=== PATIENT | male | born 1965 | race Caucasian/White ===

== ENCOUNTER 2021-09-25 09:49 | Emergency (ER) | payer BC ==
[~2021-09-25] VITALS: Ht 162.6 cm; Wt 74.8 kg
[~2021-09-25 09:49] MED LIST: ASPIRIN EC325 M1 PO; B-COMPLEX-VITA1 EACH; NIACIN 500 MG500 M1; NOHOMEMEDICATIONS
[2021-09-25 10:53] LABS: ABSOLUTE BASOPHILS 0.1 thou/uL (0.0-0.2); ABSOLUTE EOSINOPHILS 0.1 thou/uL (0.0-0.7); ABSOLUTE LYMPHOCYTES 2.1 thou/uL (0.8-5.3); ABSOLUTE MONOCYTES 0.7 thou/uL (0.0-1.2); ABSOLUTE NEUTROPHILS 5.4 thou/uL (1.6-8.1); BASOPHILS 0.7 %; EOSINOPHILS 1.5 %; HEMATOCRIT 47.7 % (42.0-52.0); LYMPHOCYTES 24.6 %; MCH 29.7 pg (26.0-34.0); MCHC 33.6 g/dL (28.0-37.0); MCV 88.3 fL (80.0-100.0); MONOCYTES 8.8 %; MPV 7.2 fl. (7.2-11.1); NUCLEATED RBCS 0 /100WBC; PLATELET COUNT* 284 thou/uL (150-400); POLYS 64.4 %; RDW-CV 13.1 % (10.5-14.5); WBC 8.3 thou/uL (4.0-11.0)
--- NOTE | 2021-09-25 10:55 | EKG ---
[place] [address] ELECTROCARDIOGRAM REPORT Name: SISI WILSON Room: [facility]#: [id number] Admission: 09/25/21 Attend Phys: Discharge: Date of : 65 Date of Service: 09/25/21 1027 Report #: [id number] THIS REPORT FOR: //name// [facility] ED Test Date: 2021-09-25 Test Time: 10:27:38 Pat Name: SISI WILSON Department: Room: Gender: Claims Attorney: : 1965 Requested By: Maryanne Martines Order Number: [id number] MD: Ricardo Guadarrama Measurements Intervals Lolo Rate: 78 P: 53 RI: 149 QRS: 94 QRSD: 99 T: 32 QT: 358 QTc: 408 Interpretive Statements Sinus rhythm Consider right ventricular hypertrophy Compared to ECG 11/13/2012 09:15:26 Sinus arrhythmia no longer present Electronically Signed On 09-25-2021 10:55:19 CDT by Ricardo Guadarrama [email or web address] <ELECTRONICALLY SIGNED> By: Ricardo Guadarrama MD, FAC 09/25/21 1055 1027 1027 Ricardo Guadarrama MD, [facility] /EPI
[2021-09-25 11:08] LABS: CALCIUM 8.7 mg/dL (8.5-10.1); CREATININE 1.1 mg/dL (0.6-1.3)
[2021-09-25 11:12] LABS: ALBUMIN 3.7 g/dL (3.4-5.0); TOTAL BILIRUBIN 0.2 mg/dL (<0.1-1.0); TOTAL PROTEIN 7.2 g/dL (6.4-8.2)
[2021-09-25] MEDS ORDERED: DICYCLOMINE HCL20 MG PO (11:22)
[2021-09-25] MEDS ORDERED: ZOFRAN ODT4 MG PO (11:22)
[2021-09-25 12:27] LABS: URINE BILIRUBIN NEGATIVE (Negative); URINE BLOOD NEGATIVE (Negative); URINE CLARITY CLEAR; URINE COLOR YELLOW; URINE GLUCOSE-RANDOM NEGATIVE (Negative); URINE KETONES NEGATIVE (Negative); URINE LEUKOCYTES-REFLEX NEGATIVE (Negative); URINE NITRITE-REFLEX NEGATIVE (Negative); URINE PROTEIN NEGATIVE (Negative); URINE SPECIFIC GRAVITY 1.015 (1.005-1.030); URINE UROBILINOGEN 0.2 E.U./dl (0.2-1.0)
[2021-09-25 12:41] VITALS: BP 119/78
== END 2021-09-25 12:42 | disposition home or self-care (01) ==
LOC: M.ERS 09:49
PROVIDERS: Nurse Practitioner Family
DX: K52.9 Noninfective gastroenteritis and colitis, unspecified (principal); G43.909 Migraine, unspecified, not intractable, without status migrainosus; Z79.82 Long term (current) use of aspirin; Z79.899 Other long term (current) drug therapy; Z91.041 Radiographic dye allergy status